=== PATIENT | male | born 1985 | race Caucasian/White ===

== ENCOUNTER 2017-03-21 16:51 | Emergency (ER) | payer SELFPAY ==
[~2017-03-21] VITALS: Ht 182.9 cm; Wt 90.8 kg
[2017-03-21] MEDS ORDERED: ASPIRIN 81 MG TABLET CHEW PO ONE (18:00)
[2017-03-21 18:19] LABS: ASPARTATE AMINO TRANSFERASE 25 U/L (15-37); BLOOD UREA NITROGEN 12 mg/dL (7-18)
[2017-03-21 18:24] LABS: IS PT STATUS REG ER OR PRE ER? YES
[2017-03-21] MEDS ORDERED: ASPIRIN 81 MG TABLET CHEW ONE (19:14)
[2017-03-21] MEDS ORDERED: KETOROLAC 30 MG/1 ML ONE (19:24)
[2017-03-21] MEDS ORDERED: KETOROLAC 30 MG/1 ML IM ONE (19:30)
[2017-03-21 20:28] VITALS: BP 117/82
== END 2017-03-21 21:01 | disposition home or self-care (01) ==
LOC: ED 20:55
DX: R07.89 Other chest pain (principal)
CPT/HCPCS: 36415; 71020; 80053; 84484; 85025; 93005; 96372; 99285; J1885